=== PATIENT | female | born 1995 | race Caucasian/White ===

== ENCOUNTER 2021-10-16 14:24 | Emergency (ER) | payer OTHER ==
[~2021-10-16] VITALS: Ht 157.5 cm; Wt 61.4 kg
[2021-10-16 16:15] VITALS: BP 116/62
== END 2021-10-16 16:28 | disposition home or self-care (01) ==
LOC: EMS 14:24
DX: S06.0X0A Concussion without loss of consciousness, initial encounter (principal); W18.39XA Other fall on same level, initial encounter; Y93.89 Activity, other specified; Y92.89 Other specified places as the place of occurrence of the external cause; Y99.0 Civilian activity done for income or pay
CPT/HCPCS: 70450; 99284